=== PATIENT | female | born 1990 ===

== ENCOUNTER 2017-09-23 20:13 | Emergency (ER) | payer BC ==
[2017-09-23 20:19] VITALS: BP 157/82; PULSE 121; RESP 16; TEMP 97.1; O2SAT 99
--- NOTE | 2017-09-23 20:38 | ED PDOC ---
HPI: Psych/Substance Abuse Time Seen by Provider: 09/23/17 20:23 Chief Complaint (Nursing): Alcohol Ingestion Chief Complaint (Provider): ETOH History Per: Patient Additional Complaint(s): Pt is a 27 yo female, no PMH, presents to ED for suspected ETOH intoxication. Pt admits to drinking for [employer] today. Pt walking around ED room with teady gait. speaking in clear sentences. Asking to go home. Denies nay physical complaints. As per EMS, pt fell and hit her chin on the ground. As per friend present, no LOC noted. Past Medical History Reviewed: Nursing Documentation, Vital Signs Vital Signs: Last Vital Signs Temp 97.1 F L 09/23/17 20:15 Pulse 121 H 09/23/17 20:15 Resp 16 09/23/17 20:15 BP 157/82 H 09/23/17 20:15 Pulse Ox 99 09/23/17 20:15 - Medical History PMH: No Chronic Diseases - Family History Family History: States: Unknown Family Hx - Social History Current smoker - smoking cessation education provided: No Alcohol: Social Drugs: Denies - Allergies Allergies/Adverse Reactions: Allergies Allergy/AdvReac Type Severity Reaction Status Date / Time No Known Allergies Allergy Verified 09/23/17 20:36 Review of Systems ROS Statement: Except As Marked, All Systems Reviewed And Found Negative Physical Exam - Reviewed Nursing Documentation Reviewed: Yes Vital Signs Reviewed: Yes - Physical Exam Appears: Positive for: Well, Non-toxic, No Acute Distress Head Exam: Positive for: ATRAUMATIC, NORMAL INSPECTION, NORMOCEPHALIC Skin: Positive for: Normal Color, Warm, DRY Eye Exam: Positive for: EOMI, Normal appearance, PERRL ENT: Positive for: Normal ENT Inspection, Other (no laceration to submental area. no edeam or ecchymosis. Pt reports site non tender. dentition intact. ) Neck: Positive for: Normal, Painless ROM Cardiovascular/Chest: Positive for: Regular Rate, Rhythm Respiratory: Positive for: CNT, Normal Breath Sounds Gastrointestinal/Abdominal: Positive for: Normal Exam, Bowel Sounds, Soft Back: Positive for: Normal Inspection Extremity: Positive for: Normal ROM Neurologic/Psych: Positive for: Alert, Oriented - ECG O2 Sat by Pulse Oximetry: 99 Medical Decision Making Medical Decision Making: No medical intervention needed at this time. Pt has 2 fiends at bedside willing to take her home. [employer] has been called. Stable for discharge at this time Pulse on discharge: 82 Disposition - Clinical Impression Clinical Impression: Alcohol ingestion - Patient ED Disposition Is Patient to be Admitted: No - Disposition Disposition: Routine/Home Disposition Time: 21:03 Condition: STABLE Instructions: Alcohol Intoxication (ED) Forms: [facility] (Par[place]ayan)
== END 2017-09-23 20:50 | disposition home or self-care (01) ==
LOC: H.ER 20:13
DX: F10.129 Alcohol abuse with intoxication, unspecified (principal)